=== PATIENT | male | born 1975 | race Caucasian/White ===

== ENCOUNTER → 2017-11-07 | Outpatient (CLI) | payer OTHER ==
--- NOTE | 2017-11-07 19:10 | ECHOF ---
Referral Reason:I34.1 Nonrheumatic mitral valve prolapse MEASUREMENTS -------- HEIGHT: 172.7 cm WEIGHT: 79.4 kg BP: IVSd: 0.9 cm (0.6 - 1.1) LVIDd: 4.2 cm (3.9 - 5.3) LVPWd: 0.9 cm (0.6 - 1.1) IVSs: 1.5 cm LVIDs: 2.6 cm LVPWs: 1.5 cm RVIDd: 3.2 cm (< 3.3) LAESV Index (A-L): 13.17 ml/m Ao Diam: 2.7 cm (2.0 - 3.7) LA Diam: 3.2 cm (2.7 - 3.8) AV Cusp: 2.0 cm (1.5 - 2.6) EPSS: 0.6 cm MV E Mart: 0.60 m/s MV DecT: 239 ms MV A Mart: 0.64 m/s MV E/A Ratio: 0.94 MV EF SLOPE: 138.24 mm/s (70 - 150) MV EXCURSION: 1.82 cm (> 18.000) FINDINGS -------- Sinus rhythm. This was a technically good study. The left ventricular size is normal. Left ventricular wall thickness is normal. Overall left vent ricular systolic function is normal with, an EF between 55 - 60 %. The right ventricle is normal in size and function. Normal LA size by volume 22+/-6 ml/m2. The right atrium is normal in size. The aortic valve is trileaflet, and appears structurally normal. No aortic stenosis or regurgitation. The mitral valve leaflets are mildly thickened. There is trace to mild mitral regurgitation. Trace tricuspid regurgitation present. Right ventricular systolic pressure is normal at < 35 mmHg. There is no evidence of pulmonary hypertension. Trace/mild (physiologic) pulmonic regurgitation. The aortic root size is normal. Normal inferior vena cava with normal inspiratory collapse consistent with estimated right atrial pre ssure of 5 mmHg. There is no pericardial effusion. CONCLUSIONS -------- 1. Sinus rhythm. 2. This was a technically good study. 3. The left ventricular size is normal. 4. Left ventricular wall thickness is normal. 5. Overall left ventricular systolic function is normal with, an EF between 55 - 60 %. 6. Normal LA size by volume 22+/-6 ml/m2. 7. The aortic valve is trileaflet, and appears structurally normal. No aortic stenosis or regurgitati on. 8. The mitral valve leaflets are mildly thickened. 9. There is trace to mild mitral regurgitation. 10. Trace tricuspid regurgitation present. 11. Right ventricular systolic pressure is normal at < 35 mmHg. 12. There is no evidence of pulmonary hypertension. 13. Trace/mild (physiologic) pulmonic regurgitation. 14. The aortic root size is normal. 15. There is no pericardial effusion. OUTPATIENT CLERK: Mckay Okeefe RDCS
== END | disposition home or self-care (01) ==
LOC: RADECHMAIN 16:02
PROVIDERS: ATTEND Family Medicine
DX: I05.9 Rheumatic mitral valve disease, unspecified (principal)
CPT/HCPCS: 93306

== ENCOUNTER → 2018-04-10 | Outpatient (CLI) | payer OTHER ==
--- NOTE | 2018-04-10 22:37 | MR ---
MRI CERVICAL SPINE: CLINICAL HISTORY: Cervical disc degeneration per order. Headache with severe neck pain and cramping f or many years causing pain or weakness into bilateral arms and fingers per patient. TECHNIQUE: Multiplanar, multisequence imaging of the cervical spine is performed without IV contrast. COMPARISON: None. FINDINGS: Sagittal images of the cervical spine show the craniocervical junction to appear within nor mal limits. The cervical and upper thoracic spinal cord is normal in course, caliber, and signal. V ertebral alignment is anatomic. The vertebral body and intravertebral disk heights are normal. No la rge posterior disc herniations are seen on sagittal images. The bone marrow signal intensity is withi n normal limits. No significant spurring is present. Axial images show the C2-C3 and C3-C4 levels to appear within normal limits. Axial images at C4-C5 level shows some uncovertebral facet degenerative changes bilaterally causing m ild bilateral neural foraminal narrowing. Axial images at C5-C6 level shows a focal right paracentral disc protrusion effacing the anterior the jessica sac on axial image 23, bilateral neural foramina are patent. Axial images at C6-C7 level shows broad-based left paracentral disc protrusion effacing the anterolat eral thecal sac and causing mild to moderate left greater than right bilateral neural foraminal narro wing on axial image 15. Axial images at C7-T1 level are felt within normal limits. 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
== END | disposition home or self-care (01) ==
LOC: RADMRIMAIN 18:34
PROVIDERS: ATTEND Family Medicine
DX: M99.71 Connective tissue and disc stenosis of intervertebral foramina of cervical region (principal); M50.222 Other cervical disc displacement at C5-C6 level; M47.812 Spondylosis without myelopathy or radiculopathy, cervical region
CPT/HCPCS: 72141